=== PATIENT | male | born 1935 | race Caucasian/White ===

== ENCOUNTER 2020-08-20 02:49 | Inpatient (IN) | payer MEDICARE ==
[~2020-08-20] VITALS: Ht 170.2 cm; Wt 92.1 kg
[2020-08-20] VITALS (11 sets, daily range): BP systolic 91–169; BP diastolic 41–98
[2020-08-20] MEDS ORDERED: METO100T14 PO (03:14)
[2020-08-20] MEDS ORDERED: LOSA1TAB41 PO (03:14)
[2020-08-20] MEDS ORDERED: FOLI0.4T2 PO (03:14)
[2020-08-20] MEDS ORDERED: MULT-1141 PO (03:14)
[2020-08-20] MEDS ORDERED: APIX2.5T PO (03:14)
[2020-08-20] MEDS ORDERED: DOCU100C40 PO (03:14)
[2020-08-20] MEDS ORDERED: LEVO125T PO (03:14)
[2020-08-20] MEDS ORDERED: ATOR10TA PO (03:14)
[2020-08-20 03:17] LABS: BASOPHILS % (AUTO) 0.7 % (0-1); EOSINOPHILS # (AUTO) 0.2 X10'3 (0-0.9); EOSINOPHILS % (AUTO) 2.5 % (0-6); HEMATOCRIT 34.4 % (42.0-52.0); HEMOGLOBIN 11.6 g/dl (14.0-17.9); LYMPHOCYTES # (AUTO) 1.5 X10'3 (1.1-4.8); LYMPHOCYTES % (AUTO) 23.2 % (21-51); MEAN CORPUSCULAR HEMOGLOBIN 30.3 PG (27.0-31.0); MEAN CORPUSCULAR HGB CONC 33.8 g/dL (33.0-36.5); MEAN CORPUSCULAR VOLUME 89.8 FL (78-98); MEAN PLATELET VOLUME 7.4 FL (7.4-10.4); MONOCYTES % (AUTO) 15.9 % (2-12); NEUTROPHILS # (AUTO) 3.6 X10'3 (1.8-7.7); NEUTROPHILS % (AUTO) 57.7 % (42-75); PLATELET COUNT 199 X10'3 (140-440); RED BLOOD COUNT 3.84 X10'6 (4.70-6.10); RED CELL DISTRIBUTION WIDTH 14.6 % (11.5-14.5); WHITE BLOOD COUNT 6.3 X10'3 (4.5-11.0)
[2020-08-20 03:24] LABS: ALANINE AMINOTRANSFERASE 20 U/L (12-78); ALBUMIN 3.9 G/DL (3.4-5.0); ALKALINE PHOSPHATASE 109 IU/L (46-116); ANION GAP 11 (8-16); ASPARTATE AMINO TRANSFERASE 25 U/L (10-37); BILIRUBIN,TOTAL 0.6 MG/DL (0.1-1.0); BLOOD UREA NITROGEN 31 MG/DL (7-18); BUN/CREATININE RATIO 16.2 (5.4-32.0); CALCIUM 9.6 MG/DL (8.5-10.1); CHLORIDE 107 MMOL/L (99-107); CREATININE 1.91 MG/DL (0.60-1.10); GLUCOSE 111 MG/DL (70-104); POTASSIUM 4.5 MMOL/L (3.5-5.1); SODIUM 143 MMOL/L (135-145); TOTAL CARBON DIOXIDE 25.4 MMOL/L (24-32); TOTAL PROTEIN 7.9 G/DL (6.4-8.2); eGFR 34 ML/MIN
--- NOTE | 2020-08-20 03:40 | NUR ---
BHARTI GARCIA MADE AWARE OF PT TRENDING UP TROPONIN. TROPS AT [facility] WERE 0.08 AND 0.18. INITIAL TROPONIN HERE WAS 0.87. NO NEW ORDERS AT THIS TIME. WILL CONTINUE TO MONITOR PT. PT DENIES ANY CP OR SOB.
--- NOTE | 2020-08-20 05:10 | NUR ---
assisted pt to stand up at bedside to urinate. was a stand by assist. collected urine. no complaints of pain at this time. will continue to monitor
[2020-08-20] MEDS ORDERED: diltiazem 5mg/ml 5ml inj. IV ONE (05:35)
[2020-08-20] MEDS ORDERED: nitroGLYCERIN 0.4mg/hour patch TD ONE (05:35)
[2020-08-20] MEDS ORDERED: aspirin 81mg tab.chew PO ONE (05:35)
[2020-08-20] MEDS ORDERED: magnesium hydroxide 30ml (MOM) UD suspension PO PRN (06:00)
[2020-08-20] MEDS ORDERED: mag hydrox/Alum hydrox/simeth 30ml oral suspension PO PRN (06:00)
[2020-08-20] MEDS ORDERED: potassium CL 10mEq/100ml bag 100 ML IV PRN ×2 (06:00)
[2020-08-20] MEDS ORDERED: potassium Cl 20 mEq SR tablet PO PRN ×2 (06:00)
[2020-08-20] MEDS ORDERED: ondansetron/PF 4mg/2ml inj IV PRN (06:00)
[2020-08-20] MEDS ORDERED: acetaminophen 325mg tablet PO PRN (06:00)
[2020-08-20] MEDS ORDERED: METO-411 PO (06:31)
[2020-08-20] MEDS ORDERED: LOSA1TAB15 PO (06:31)
[2020-08-20] MEDS ORDERED: LEVO112T5 PO (06:31)
[2020-08-20 06:40] LABS: HEMOGLOBIN A1C 5.7 % (4.5-6.2)
[2020-08-20] MEDS: normal saline 1000ml 1,000 ML IV SCH (07:06)
[2020-08-20] MEDS: diltiazem-D5W 125mg/125ml 125 ML IV SCH (07:09)
[2020-08-20] MEDS: HYDROchlorothiazide 25mg tablet PO SCH (07:10)
[2020-08-20] MEDS: metoprolol succinate 25mg (24-HOUR) SR. Tablet PO SCH (07:10)
[2020-08-20] MEDS: atorvastatin 20mg tablet PO SCH (07:10)
[2020-08-20] MEDS: docusate sod 100mg capsule PO SCH ×2 (07:10→20:00)
[2020-08-20] MEDS: folic acid 1mg tablet PO SCH (07:10)
[2020-08-20] MEDS: multivitamins, therapeutics tablet PO SCH (07:10)
[2020-08-20] MEDS: K and/or MAG REPLACEMENT MC SCH ×2 (07:11→20:00)
[2020-08-20] MEDS: levoTHYROXINE 112mcg tablet PO SCH (07:19)
--- NOTE | 2020-08-20 07:30 | NUR ---
PATIENT RESTING IN BED, ADMINISTERED MOST OF AM MEDS THAT WERE AVAILABLE. PENDING TX UPSTAIRS TO PCU. CALLING ADMITTING MD TO MAKE AWARE OF TROPONINS THEN TO CALL REPORT FOR 3025 A.
[2020-08-20] MEDS ORDERED: heparin 10,000 units/1 ML INJ IV ONE (07:40)
[2020-08-20] MEDS ORDERED: apixaban 2.5mg tablet PO SCH (08:00)
[2020-08-20] MEDS ORDERED: enoxaparin 40mg/0.4ml syringe SUBCUT SCH (08:00)
[2020-08-20] MEDS ORDERED: non-formulary drug (Losartan/Hydrochlorothiazide (Losartan-Hctz 100-12.5 Mg Tab) 1 TAB) PO SCH (08:00)
[2020-08-20 08:04] LABS: PARTIAL THROMBOPLASTIN TIME 38 SECONDS (22-32)
[2020-08-20] MEDS: heparin 25,000 UNIT/250ml bag 250 ML IV SCH ×2 (08:06→16:55)
--- NOTE | 2020-08-20 08:26 | NUR ---
GAVE REPORT TO YAZ FALCON ON PCU, PATIENT TO BE TRANSFERRED TO ROOM 3025 A.
--- NOTE | 2020-08-20 08:26 | NUR ---
Patient in room ED 14. I have received report from EZEKIEL Gray and had the opportunity to ask questions, and awaiting pt's arrival to PCU floor.
--- NOTE | 2020-08-20 08:55 | NUR ---
TRANSPORTED PATIENT TO ROOM 3025 A AT THIS TIME, TRANSFERRED CARE TO YAZ FALCON, HOOKED UP TO MOBILE. VSS.
--- NOTE | 2020-08-20 09:52 | NUR ---
Patient arrived from ED. Alert and Oriented to room. BLL, SRx2, CL within reach, close to nurse station. Heparin GTT and Cardizem GTT running per MD orders. First set of vitals complete, MRSA swab collected. No signs of distress noted at this time.
--- NOTE | 2020-08-20 10:49 | NUR ---
Paged Dr Lucero MESSAGE: Re: Hilario Wilson [id number] Critical 6H Trop 1.19, up from 0.82. On Heparin Gtt. Thanks Miriam Zaman [phone]
[2020-08-20] MEDS: losartan 50mg tablet PO SCH (12:27)
--- NOTE | 2020-08-20 15:30 | NUR ---
Per protocol, stopped Heparin due to Critical PTT >139. Will continue to monitor pt and follow protocol.
--- NOTE | 2020-08-20 15:35 | NUR ---
Paged Dr Lucero regarding critical labs. MESSAGE: Re Hilario Wilson Rm [id number] Critical 12H Trop 1.50, up from 1.19. AND Critical PTT >139, I will follow protocol. Thanks Miriam Zaman [phone]
--- NOTE | 2020-08-20 16:08 | NUR ---
Called [employer] to have Pacemaker interrogated.
--- NOTE | 2020-08-20 16:59 | NUR ---
Paged Dr Lucero regarding pt being able to eat. MESSAGE: Alicia Katie, John [id number] Can pt eat, he hasn't eaten since yesterday. Thank you Miriam Zaman :) [phone]
--- NOTE | 2020-08-20 17:36 | NUR ---
Paged hosp, "Marina [phone] Hilario Arias-2ND PAGE.. MAY PATIENT EAT? NPO SINCE YESTERDAY."
--- NOTE | 2020-08-20 18:27 | NUR ---
Problems reprioritized. Patient report given, questions answered & plan of care reviewed with EZEKIEL Guy. Pt sitting up in bed resting comfortably at change of shift.
--- NOTE | 2020-08-20 18:30 | NUR ---
Patient in room U 3025. I have received report from EZEKIEL Pineda and had the opportunity to ask questions and assume patient care. Patient resting in bed, no signs of distress. Safety measures in place. Bed in low and locked position. Call light and personal items within reach. Will continue to monitor for remainder of shift.
[2020-08-20] MEDS ORDERED: furosemide 20 MG/2 ML vial IV ONE (20:10)
[2020-08-21] VITALS (13 sets, daily range): BP systolic 101–173; BP diastolic 51–84
--- NOTE | 2020-08-21 03:34 | NUR ---
PTT therapeutic, no rate change.
[2020-08-21] MEDS: diltiazem-D5W 125mg/125ml 125 ML IV SCH (05:28)
--- NOTE | 2020-08-21 05:54 | NUR ---
Patient has severe break down of bilateral feet. On right foot, second toe has opening, copious amounts of pus is draining. Presence of two maggots externally, unsure of internally. On left foot, infestation of maggots, cleaned thoroughly for last two nights in row. Copious amounts of pus and maggots coming out between fourth and fifth toe as well as hole in sole of foot. Per recommendation of Dr. Duran, wrapped in petroleum gauze and covered to hopefully kill off a portion of maggots. Sensation present on bilateral feet, some deficits. Dr. Duran notified of increasing sings of infection. Will continue to monitor. Addendum: 08/21/20 at 0634 by Brooks Kelley RN Charted on wrong patient.
--- NOTE | 2020-08-21 06:16 | NUR ---
Patient in room PCU 3025. I have received report from EZEKIEL Guy and had the opportunity to ask questions and assume patient care. Pt awake and resting comfortably at change of shift.
[2020-08-21 06:22] LABS: BASOPHILS # (AUTO) 0.1 X10'3 (0-0.2); BASOPHILS % (AUTO) 1.1 % (0-1); EOSINOPHILS # (AUTO) 0.1 X10'3 (0-0.9); EOSINOPHILS % (AUTO) 1.8 % (0-6); HEMATOCRIT 31.7 % (42.0-52.0); HEMOGLOBIN 10.7 g/dl (14.0-17.9); LYMPHOCYTES # (AUTO) 1.6 X10'3 (1.1-4.8); LYMPHOCYTES % (AUTO) 23.2 % (21-51); MEAN CORPUSCULAR HGB CONC 33.8 g/dL (33.0-36.5); MEAN CORPUSCULAR VOLUME 88.7 FL (78-98); MEAN PLATELET VOLUME 7.6 FL (7.4-10.4); MONOCYTES # (AUTO) 1.1 X10'3 (0-0.9); MONOCYTES % (AUTO) 15.7 % (2-12); NEUTROPHILS % (AUTO) 58.2 % (42-75); PLATELET COUNT 180 X10'3 (140-440); RED BLOOD COUNT 3.58 X10'6 (4.70-6.10); RED CELL DISTRIBUTION WIDTH 14.5 % (11.5-14.5); WHITE BLOOD COUNT 6.9 X10'3 (4.5-11.0)
--- NOTE | 2020-08-21 06:34 | NUR ---
Problems reprioritized. Patient report given, questions answered & plan of care reviewed with EZEKIEL Pineda. No signs of distress. Patient resting in bed. Medications admininistered as ordered, care plan followed. Safety measures in place, bed in low and locked position. Call light and personal items within reach. Will continue to monitor for remainder of shift.
[2020-08-21 06:41] LABS: ALANINE AMINOTRANSFERASE 13 U/L (12-78); ALBUMIN 3.4 G/DL (3.4-5.0); ALBUMIN/GLOBULIN RATIO 0.9 (1.1-1.5); ALKALINE PHOSPHATASE 95 IU/L (46-116); ANION GAP 12 (8-16); ASPARTATE AMINO TRANSFERASE 21 U/L (10-37); BILIRUBIN,TOTAL 0.7 MG/DL (0.1-1.0); BLOOD UREA NITROGEN 33 MG/DL (7-18); BUN/CREATININE RATIO 18.3 (5.4-32.0); CALCIUM 9.2 MG/DL (8.5-10.1); CHLORIDE 109 MMOL/L (99-107); GLUCOSE 96 MG/DL (70-104); POTASSIUM 4.2 MMOL/L (3.5-5.1); SODIUM 142 MMOL/L (135-145); TOTAL CARBON DIOXIDE 21.1 MMOL/L (24-32); eGFR 36 ML/MIN
[2020-08-21 06:47] LABS: CHOL/HDL RATIO 2.9 (0.00-4.99); CHOLESTEROL 115 MG/DL (0-200); HDL CHOLESTEROL 40 MG/DL (35-60); LDL CHOLESTEROL 64 MG/DL (50-100); TRIGLYCERIDES 96 MG/DL (20-135)
[2020-08-21] MEDS ORDERED: metoprolol tartrate 50mg tablet PO SCH (08:00)
[2020-08-21] MEDS: K and/or MAG REPLACEMENT MC SCH ×2 (08:00→20:00)
[2020-08-21] MEDS: metoprolol succinate 25mg (24-HOUR) SR. Tablet PO SCH (08:00)
[2020-08-21] MEDS ORDERED: furosemide 20 MG/2 ML vial IV ONE (08:00)
--- NOTE | 2020-08-21 08:29 | NUR ---
Paged Dr Lucero MESSAGE: Re Hilario Wilson Rm [id number] [facility] doesn't have pt on schedule for Mesha, want me to put an order in for one? Thanks Miriam Zaman [phone]
[2020-08-21] MEDS: atorvastatin 20mg tablet PO SCH (08:35)
[2020-08-21] MEDS: multivitamins, therapeutics tablet PO SCH (08:35)
[2020-08-21] MEDS: docusate sod 100mg capsule PO SCH ×2 (08:36→21:00)
[2020-08-21] MEDS: folic acid 1mg tablet PO SCH (08:36)
[2020-08-21] MEDS: levoTHYROXINE 112mcg tablet PO SCH (08:36)
[2020-08-21] MEDS: HYDROchlorothiazide 25mg tablet PO SCH (08:52)
--- NOTE | 2020-08-21 10:00 | NUR ---
Per Dr Reilly, pt is to have a Mesha Scan and go from there.
[2020-08-21] MEDS ORDERED: regadenoson 0.4mg/5ml syringe IV ONE (10:50)
[2020-08-21] MEDS ORDERED: nitroGLYCERIN 0.4mg SUBLingual tab SL PRN (10:50)
[2020-08-21] MEDS ORDERED: metoprolol tartrate 1mg/ml inj IV PRN (10:50)
[2020-08-21] MEDS ORDERED: aminophylline 250mg/10ml inj. IV PRN (10:50)
[2020-08-21] MEDS: losartan 50mg tablet PO SCH (11:08)
[2020-08-21] MEDS: heparin 10,000 units/1 ML INJ IV PRN ×2 (11:10→17:45)
[2020-08-21] MEDS: heparin 25,000 UNIT/250ml bag 250 ML IV SCH ×2 (11:12→17:49)
--- NOTE | 2020-08-21 11:28 | NUR ---
Spoke with Timothy in [facility], he informed me he has no more sets to complete a mesha scan today. He said to have pt NPO after midnight and no caffeine as of now and pt will have a Mesha scan in the am of 08/22/20.
--- NOTE | 2020-08-21 12:34 | NUR ---
Per Dr Reilly, continue Metoprolol 100mg BID, and decrease Cozaar to 50mg QD.
--- NOTE | 2020-08-21 18:06 | NUR ---
Problems reprioritized. Patient report given, questions answered & plan of care reviewed with EZEKIEL Del Rio. Pt sitting up in bed, watching tv at change of shift.
[2020-08-21] MEDS: metoprolol tartrate 50mg tablet PO SCH (21:01)
[2020-08-21] MEDS ORDERED: diltiazem-D5W 125mg/125ml 125 ML IV SCH (22:35)
--- NOTE | 2020-08-21 22:45 | NUR ---
Call placed to Dr. Duran because patient's HR is sustaining 120s to 140s. Current BP 173/84. Informed MD that patient had been on a Cardizem drip until at 5mg/hr until this morning but when drip was d/c'd and patient was not started any PO Cardizem. MD gave order to resume patient on the Cardizem drip at 5mg/hr.
[2020-08-22] VITALS (22 sets, daily range): BP systolic 80–186; BP diastolic 36–100
[2020-08-22] MEDS: heparin 10,000 units/1 ML INJ IV PRN (00:45)
[2020-08-22] MEDS: heparin 25,000 UNIT/250ml bag 250 ML IV SCH (00:47)
[2020-08-22] MEDS: normal saline 1000ml 1,000 ML IV SCH (05:24)
--- NOTE | 2020-08-22 06:00 | NUR ---
Patient in room PCU 3025. I have received report from Eliane FALCON and had the opportunity to ask questions and assume patient care.
--- NOTE | 2020-08-22 06:00 | NUR ---
Patient in room PCU 3025. I have received report from ANDRY and had the opportunity to ask questions and assume patient care.
--- NOTE | 2020-08-22 06:06 | NUR ---
Problems reprioritized. Patient report given, questions answered & plan of care reviewed with Atul FALCON.
--- NOTE | 2020-08-22 07:32 | NUR ---
PAGER ID: [phone] MESSAGE: Re: Hilario Wilson. Room: [facility]. Pt restarted on Cardizem drip last night due to RVR. Current HR is 80-90. Do you want PO Cardizem started and then drip DC'd? Pt has morning Mesha ordered. -[facility] #[id number] Dr. Luceor paged concerning Pt's Cardizem drip.
[2020-08-22 07:45] LABS: BASOPHILS % (AUTO) 0.8 % (0-1); EOSINOPHILS # (AUTO) 0.1 X10'3 (0-0.9); EOSINOPHILS % (AUTO) 1.7 % (0-6); HEMATOCRIT 32.6 % (42.0-52.0); HEMOGLOBIN 11.1 g/dl (14.0-17.9); LYMPHOCYTES # (AUTO) 1.5 X10'3 (1.1-4.8); LYMPHOCYTES % (AUTO) 26.4 % (21-51); MEAN CORPUSCULAR HEMOGLOBIN 30.4 PG (27.0-31.0); MEAN CORPUSCULAR HGB CONC 34.2 g/dL (33.0-36.5); MONOCYTES # (AUTO) 0.9 X10'3 (0-0.9); MONOCYTES % (AUTO) 15.3 % (2-12); NEUTROPHILS # (AUTO) 3.1 X10'3 (1.8-7.7); NEUTROPHILS % (AUTO) 55.8 % (42-75); PLATELET COUNT 192 X10'3 (140-440); RED BLOOD COUNT 3.66 X10'6 (4.70-6.10); RED CELL DISTRIBUTION WIDTH 14.5 % (11.5-14.5); WHITE BLOOD COUNT 5.6 X10'3 (4.5-11.0)
[2020-08-22 07:51] LABS: ALANINE AMINOTRANSFERASE 19 U/L (12-78); ALBUMIN 3.4 G/DL (3.4-5.0); ALBUMIN/GLOBULIN RATIO 0.9 (1.1-1.5); ALKALINE PHOSPHATASE 99 IU/L (46-116); ANION GAP 10 (8-16); ASPARTATE AMINO TRANSFERASE 18 U/L (10-37); BILIRUBIN,TOTAL 0.7 MG/DL (0.1-1.0); BLOOD UREA NITROGEN 37 MG/DL (7-18); BUN/CREATININE RATIO 18.5 (5.4-32.0); CALCIUM 9.2 MG/DL (8.5-10.1); CHLORIDE 108 MMOL/L (99-107); GLUCOSE 110 MG/DL (70-104); POTASSIUM 4.1 MMOL/L (3.5-5.1); SODIUM 142 MMOL/L (135-145); TOTAL CARBON DIOXIDE 23.8 MMOL/L (24-32); TOTAL PROTEIN 7.1 G/DL (6.4-8.2); eGFR 32 ML/MIN
[2020-08-22] MEDS: metoprolol tartrate 50mg tablet PO SCH (07:52)
[2020-08-22] MEDS: levoTHYROXINE 112mcg tablet PO SCH (07:53)
[2020-08-22] MEDS: docusate sod 100mg capsule PO SCH ×2 (07:53→20:00)
[2020-08-22] MEDS: HYDROchlorothiazide 25mg tablet PO SCH (07:53)
[2020-08-22] MEDS: multivitamins, therapeutics tablet PO SCH (07:53)
[2020-08-22] MEDS: atorvastatin 20mg tablet PO SCH (07:53)
[2020-08-22] MEDS: folic acid 1mg tablet PO SCH (07:54)
[2020-08-22] MEDS: losartan 50mg tablet PO SCH (07:54)
[2020-08-22] MEDS: K and/or MAG REPLACEMENT MC SCH ×2 (08:00→20:00)
[2020-08-22 08:17] LABS: PLATELET ESTIMATE NORMAL; TOTAL CELLS COUNTED 100
--- NOTE | 2020-08-22 09:20 | NUR ---
PAGER ID: [phone] MESSAGE: Re: Hilario Wilson. Room: 3025A. Lab has drawn cardiac PTT twice and is not able to get a value. Do you want to stop Heparin drip for hour and redraw then? -[facility] U #[id number] Dr. Lucero paged concerning Pt's heparin drip.
--- NOTE | 2020-08-22 10:01 | NUR ---
PAGER ID: [phone] MESSAGE: Re: Hilario Wilson. Room: [facility]. What dose of PO Cardizem do you want Pt started on? -[facility] #[id number] Dr. Lucero paged concerning Cardizem PO does.
--- NOTE | 2020-08-22 10:07 | NUR ---
PTT DRAW INCONCLUSIVE TWICE, HEPARIN TURNED OF FOR AN HOUR PTT WILL BE DRAWN AGAIN AFTER THE HOUR IS UP.
--- NOTE | 2020-08-22 10:33 | NUR ---
PER CARDIZEM DRIP TO BE STOPPED AND PO CARDIZEM GIVEN AN HOUR LATER, WAITING ON CLARIFICATION FROM MD ON CARDIZEM PO DOSE.
[2020-08-22] MEDS ORDERED: digoxin 250mcg/ml 2ml ampule IV ONE ×2 (11:05→14:05)
--- NOTE | 2020-08-22 11:07 | NUR ---
PER DR. MOCK CONTINUE HEPARIN DRIP, ADMINISTER 250 mcg DIGOXIN IVP, MONITOR HR AND STOP CARDIZEM DRIP IF DIGOXIN IS EFFECTIVE.
--- NOTE | 2020-08-22 12:47 | NUR ---
PAGER ID: [phone] MESSAGE: Re: Hilario Wilson. Room: 302. Pt off Cardizem drip and ready for radha scan. [facility] not responding to calls and pages. -[facility] #[id number] -Dr. Lucero paged concerning Pt's scheduled stress test.
[2020-08-22] MEDS ORDERED: metoprolol tartrate 50mg tablet PO ONE (14:05)
--- NOTE | 2020-08-22 18:00 | NUR ---
Orientee documentation: I have reviewed and agree with all interventions, assessments performed and documented by Yessica FALCON.
--- NOTE | 2020-08-22 18:10 | NUR ---
Problems reprioritized. Patient report given, questions answered & plan of care reviewed with Harshil FALCON.
--- NOTE | 2020-08-22 18:15 | NUR ---
Patient in room PCU 3025. I have received report from Atul FALCON and Jaclyn and had the opportunity to ask questions and assume patient care.
--- NOTE | 2020-08-22 18:15 | NUR ---
Problems reprioritized. Patient report given, questions answered & plan of care reviewed with
[2020-08-22] MEDS: metoprolol tartrate 25mg tablet PO SCH (19:07)
[2020-08-23] VITALS (13 sets, daily range): BP systolic 100–196; BP diastolic 49–95
[2020-08-23] MEDS ORDERED: amLODIPine 2.5mg tablet PO ONE (00:35)
[2020-08-23 02:07] LABS: ALANINE AMINOTRANSFERASE 20 U/L (12-78); ALBUMIN 3.5 G/DL (3.4-5.0); ALBUMIN/GLOBULIN RATIO 0.9 (1.1-1.5); ALKALINE PHOSPHATASE 101 IU/L (46-116); ANION GAP 10 (8-16); ASPARTATE AMINO TRANSFERASE 22 U/L (10-37); BILIRUBIN,TOTAL 0.7 MG/DL (0.1-1.0); BLOOD UREA NITROGEN 34 MG/DL (7-18); BUN/CREATININE RATIO 17.3 (5.4-32.0); CALCIUM 9.4 MG/DL (8.5-10.1); CHLORIDE 107 MMOL/L (99-107); CREATININE 1.96 MG/DL (0.60-1.10); GLUCOSE 93 MG/DL (70-104); POTASSIUM 4.2 MMOL/L (3.5-5.1); SODIUM 142 MMOL/L (135-145); TOTAL PROTEIN 7.4 G/DL (6.4-8.2); eGFR 33 ML/MIN
[2020-08-23 02:21] LABS: BASOPHILS # (AUTO) 0.1 X10'3 (0-0.2); EOSINOPHILS # (AUTO) 0.1 X10'3 (0-0.9); EOSINOPHILS % (AUTO) 2.2 % (0-6); HEMATOCRIT 33.3 % (42.0-52.0); HEMOGLOBIN 11.2 g/dl (14.0-17.9); LYMPHOCYTES # (AUTO) 1.9 X10'3 (1.1-4.8); LYMPHOCYTES % (AUTO) 31.8 % (21-51); MEAN CORPUSCULAR HGB CONC 33.7 g/dL (33.0-36.5); MEAN CORPUSCULAR VOLUME 88.8 FL (78-98); MEAN PLATELET VOLUME 8.2 FL (7.4-10.4); MONOCYTES # (AUTO) 0.9 X10'3 (0-0.9); MONOCYTES % (AUTO) 16.1 % (2-12); NEUTROPHILS # (AUTO) 2.9 X10'3 (1.8-7.7); NEUTROPHILS % (AUTO) 48.9 % (42-75); PLATELET COUNT 206 X10'3 (140-440); RED BLOOD COUNT 3.75 X10'6 (4.70-6.10); RED CELL DISTRIBUTION WIDTH 14.8 % (11.5-14.5); WHITE BLOOD COUNT 5.9 X10'3 (4.5-11.0)
--- NOTE | 2020-08-23 03:11 | NUR ---
per Cardiac PTT protocal. heparin was held and notified d/t the PTT result being unable to be measured. heparin was held for 120mins. decreased rate and redrew PTT 2hr following. PTT resulted and held heparin for 60mins. restarted heparin after decrease in rate. we are now able to know the lab values and make the correct titrations to reach therapeutic range. will continue to monitor pt.
--- NOTE | 2020-08-23 04:19 | NUR ---
Pt's BP has been fluctuating hypo to HTN throughout the shift. MD is aware and gave new order of Norvasc 2.5 mg once when the BP had been a HTN trend (>160). refer to VS intervention
--- NOTE | 2020-08-23 06:47 | NUR ---
Problems reprioritized. Patient report given, questions answered & plan of care reviewed with David Dimas RN.
--- NOTE | 2020-08-23 06:52 | NUR ---
Patient in room PCU 3025. I have received report from GIRISH FALCON and had the opportunity to ask questions and assume patient care.
[2020-08-23] MEDS: levoTHYROXINE 112mcg tablet PO SCH (07:40)
[2020-08-23] MEDS: folic acid 1mg tablet PO SCH (07:41)
[2020-08-23] MEDS: HYDROchlorothiazide 25mg tablet PO SCH (07:42)
[2020-08-23] MEDS: metoprolol tartrate 25mg tablet PO SCH (07:43)
[2020-08-23] MEDS: multivitamins, therapeutics tablet PO SCH (07:46)
[2020-08-23] MEDS: losartan 50mg tablet PO SCH (07:46)
[2020-08-23] MEDS: atorvastatin 20mg tablet PO SCH (07:46)
[2020-08-23] MEDS: docusate sod 100mg capsule PO SCH (07:47)
[2020-08-23] MEDS: K and/or MAG REPLACEMENT MC SCH (07:49)
[2020-08-23] MEDS ORDERED: regadenoson 0.4mg/5ml syringe IV ONE (09:05)
--- NOTE | 2020-08-23 09:30 | NUR ---
Problems reprioritized. Patient report given, questions answered & plan of care reviewed with SADIE FALCON.
--- NOTE | 2020-08-23 09:36 | NUR ---
RECEIVED REPORT FROM EZEKIEL EASLEY
--- NOTE | 2020-08-23 11:06 | NUR ---
PT RETURNED FROM [facility] IN STABLE CONDITION
[2020-08-23] MEDS ORDERED: apixaban 2.5mg tablet PO SCH (11:35)
[2020-08-23] MEDS ORDERED: metoprolol tartrate tablet PO (12:03)
--- NOTE | 2020-08-23 15:09 | NUR ---
PT DISCHARGED IN STABLE CONDITION. ALL BELONGINGS SENT HOME WITH PT INCLUDING CELL PHONE. PIV DC'D CANULA INTACT. PT VERBALIZES UNDERSTANDING OF D/C INSTRUCTIONS. PT TAKEN IN WHEELCHAIR TO PRIVATE VEHICLE BY RN. RX CALLED TO [facility] IN [place]
== END 2020-08-23 14:58 | disposition home health service (06) | DRG 281 ==
LOC: ER 02:51 → ED HOLD 06:00 → PCU 3S 08:55
PROVIDERS: ADMIT Internal Medicine; ATTEND Internal Medicine
PROC: 4B02XSZ Measurement of Cardiac Pacemaker, External Approach (ICD-10-PCS; 2020-08-20)
PROC: 4A02XM4 Measurement of Cardiac Total Activity, External Approach (ICD-10-PCS; principal; 2020-08-23)
PROC: 3E073KZ Introduction of Other Diagnostic Substance into Coronary Artery, Percutaneous Approach (ICD-10-PCS; 2020-08-23)
DX: I21.4 Non-ST elevation (NSTEMI) myocardial infarction (principal); I13.0 Hypertensive heart and chronic kidney disease with heart failure and stage 1 through stage 4 chronic kidney disease, or unspecified chronic kidney disease; I42.0 Dilated cardiomyopathy; I48.92 Unspecified atrial flutter; I48.0 Paroxysmal atrial fibrillation; E78.00 Pure hypercholesterolemia, unspecified; E03.9 Hypothyroidism, unspecified; E78.5 Hyperlipidemia, unspecified; F03.90 Unspecified dementia, unspecified severity, without behavioral disturbance, psychotic disturbance, mood disturbance, and anxiety; I25.10 Atherosclerotic heart disease of native coronary artery without angina pectoris; I49.5 Sick sinus syndrome; I50.9 Heart failure, unspecified; N18.9 Chronic kidney disease, unspecified; Z96.642 Presence of left artificial hip joint; M19.90 Unspecified osteoarthritis, unspecified site; Z85.828 Personal history of other malignant neoplasm of skin; Z95.0 Presence of cardiac pacemaker; Z79.899 Other long term (current) drug therapy
CPT/HCPCS: 36415; 71045; 78452; 80053; 80061; 83036; 83880; 84443; 84484; 85007; 85025; 85610; 85730; 87081; 93005; 93017; 93306; 93308; 96374; 99285; A9500; G0378; J1160; J1644; J1940; J2785; J3490; J7030

== ENCOUNTER 2020-09-07 11:13 | Day surgery (SDC) | payer MEDICARE ==
[~2020-09-07] VITALS: Ht 175.3 cm; Wt 90.8 kg
[2020-09-07] VITALS (12 sets, daily range): BP systolic 84–162; BP diastolic 38–97
[~2020-09-07 11:13] MED LIST: APIX2.5T PO; ATOR10TA PO; DOCU100C40 PO; FOLI0.4T2 PO; LEVO112T5 PO; LOSA1TAB15 PO; MULT-1141 PO; metoprolol tartrate tablet PO
[2020-09-07] MEDS ORDERED: normal saline 1000ml 1,000 ML IV SCH (11:45)
[2020-09-07] MEDS ORDERED: fentaNYL/PF 50MCG/1 ML 2ML syringe IV ONE (11:45)
[2020-09-07] MEDS ORDERED: MIDAZolam 1mg/ml 10ml vial IV ONE (11:45)
== END 2020-09-07 15:25 | disposition home or self-care (01) ==
LOC: SSTAY O 11:13
PROVIDERS: ATTEND Internal Medicine Cardiovascular Disease
DX: I48.0 Paroxysmal atrial fibrillation (principal); I48.3 Typical atrial flutter; I10 Essential (primary) hypertension; E78.5 Hyperlipidemia, unspecified; E03.9 Hypothyroidism, unspecified; Z95.0 Presence of cardiac pacemaker; Z79.01 Long term (current) use of anticoagulants; Z79.899 Other long term (current) drug therapy; Z85.828 Personal history of other malignant neoplasm of skin; Z98.890 Other specified postprocedural states; Z88.8 Allergy status to other drugs, medicaments and biological substances; Z81.8 Family history of other mental and behavioral disorders; Z80.3 Family history of malignant neoplasm of breast; Z82.49 Family history of ischemic heart disease and other diseases of the circulatory system
CPT/HCPCS: 82948; 92960; 93005; 94799; J2250; J3010; J7030